=== PATIENT | female | born 1975 | race African-American/Black ===

== ENCOUNTER 2019-08-21 15:27 | Emergency (ER) | payer OTHER, SELFPAY ==
[2019-08-21 15:59] VITALS: BP 132/70; PULSE 96; RESP 16; TEMP 36.9; O2SAT 99
--- NOTE | 2019-08-21 16:39 | ED.URI ---
HPI - URI/Sore Throat General Chief Complaint: Upper Respiratory Infection Stated Complaint: Cough/Chest congestion/Runny/Stuffy Nose/Sinus Time Seen by Provider: 08/21/19 16:20 Source: patient and RN notes reviewed Mode of arrival: ambulatory Limitations: no limitations History of Present Illness HPI Narrative: Patient presents today with a one-week history of nasal congestion, sinus pressure, sore throat, productive cough, intermittent mild shortness of breath. Denies history of asthma. Reports she used her 's albuterol inhaler last night, which did provide some relief. She does not smoke or vape. She has tried no other [id number] medication for symptoms prior to arrival. MD elicited complaint: cough, sore throat and nasal congestion Related Data Home Medications Medication Instructions Recorded Confirmed fluticasone propionate INTRANASAL 08/21/19 Allergies Allergy/AdvReac Type Severity Reaction Status Date / Time No Known Allergies Allergy Verified 08/21/19 16:17 Review of Systems Review of Systems: Narrative: CONSTITUTIONAL: Denies body aches, fever, chills, or sweats. EYES: Denies visual changes, redness, or discharge. ENT: Denies rhinorrhea, or otalgia.+ Congestion, sore throat, sinus pressure CARDIOVASCULAR: Denies chest pain, palpitations, or edema. RESPIRATORY: + Cough, shortness of breath GASTROINTESTINAL: Denies abdominal pain, nausea, vomiting, or diarrhea. GENITOURINARY: Denies dysuria or hematuria. SKIN: Denies rash, itching, or wounds. MUSCULOSKELETAL: Denies back pain, joint pain, or myalgia. NEUROLOGIC: Denies headache, numbness, tingling, or weakness. PSYCH: Denies depression or anxiety. PMFSH Comments At time of signature, I have reviewed and agree with nursing past medical, surgical, social and family history unless otherwise noted. Please see nursing chart for further information. There is no relevant family history pertinent to the presenting complaint Exam Narrative: Exam Narrative: GENERAL: Mildly ill-appearing, well-nourished, and in no acute distress. HEAD: Normocephalic, atraumatic. EYES: EOMI. No redness or drainage. Conjunctivae normal. ENT: Mucous membranes pink and moist. Nares congested. No rhinorrhea. TMs normal bilaterally. Throat normal. Uvula midline. NECK: Normal AROM. Supple. No lymphadenopathy. CHEST: No respiratory distress. Clear to auscultation. HEART: Regular rate and rhythm. No murmur appreciated. Normal peripheral pulses. EXTREMITIES: Normal range of motion. No edema. SKIN: Warm, dry, no rash. NEURO: No focal deficits. Alert and oriented x3. Gait steady. PSYCH: Normal affect. No signs of depression or anxiety. Course Vital Signs Vital signs: Vital Signs Temperature 98.4 F 08/21/19 15:59 Pulse Rate 96 08/21/19 15:59 Respiratory Rate 16 08/21/19 15:59 Blood Pressure 132/70 08/21/19 15:59 Pulse Oximetry 99 08/21/19 15:59 Temperature 98.4 F 08/21/19 15:59 Pulse Rate 96 08/21/19 15:59 Respiratory Rate 16 08/21/19 15:59 Blood Pressure 132/70 08/21/19 15:59 Pulse Oximetry 99 08/21/19 15:59 Reviewed. Pt has been instructed to follow up with her PCP regarding her elevated blood pressure today. MDM - URI/Sore Throat Differential Diagnosis Differential diagnosis: Likely upper respiratory infection, otitis media, sinusitis, viral infection, bronchitis, influenza, pharyngitis and other (Strep throat) Lab Data Attestation: I reviewed the patient's lab results. Labs: Influenza A Screen Positive Reference Range: Negative Influenza B Screen Positive Reference Range: Negative Strep Screen Presumptive Negative *(Reference Range: Negative)* Critical Care Time Critical Care Time Critical Care Time: No Discharge Plan Discharge Clinical Impression: Bronchitis Upper respiratory infection Qualifiers: URI type: unspecified URI Qualified Code
== END 2019-08-21 16:44 | disposition home or self-care (01) ==
PROVIDERS: Emergency Provider Nurse Practitioner; PCP Emergency Medicine
DX: J40 Bronchitis, not specified as acute or chronic (principal); J06.9 Acute upper respiratory infection, unspecified
CPT/HCPCS: 87081; 87804; 87880; 99203; G0463

== ENCOUNTER 2020-01-14 08:12 | Emergency (ER) | payer OTHER, SELFPAY ==
[2020-01-14 08:34] VITALS: BP 132/84; PULSE 93; RESP 16; TEMP 37; O2SAT 100
--- NOTE | 2020-01-14 08:39 | ED.BACK ---
HPI - Back Pain/Injury General Chief Complaint: Back Pain/Injury Stated Complaint: backside pain Time Seen by Provider: 01/14/20 08:40 Source: patient and RN notes reviewed Mode of arrival: ambulatory Limitations: no limitations History of Present Illness HPI Narrative: 44-year-old female presents with concern for bilateral flank pain, pain under her bra strap for 2 weeks please. She reports pain also has radiated to the right groin at times. Reports she called a tele-doc and was given a seven-day course of levofloxacin for possible urinary tract infection, which she finished. Reports 2 days into the antibiotic she saw her product safety engineer where she had a negative test, normal pelvic exam. Reports she was told she had blood in her urine at that time. Her doctor instructed her to finish her antibiotic. She reports symptoms mildly improved, however have returned. She reports 3-4 episodes of nausea over the past 2 weeks, no vomiting. She denies any fever. Reports her menstrual period is due in approximately 5 days. Reports she noticed a small amount of blood when she urinated this morning. She denies any injury, trauma. Reports the pain does not worsen or improve with position changes. Reports occasionally feeling difficulty emptying her bladder, has not had that symptom in the last 3 to 4 days. MD elicited complaint: back pain Related Data Allergies Allergy/AdvReac Type Severity Reaction Status Date / Time No Known Allergies Allergy Verified 08/21/19 16:17 Review of Systems Review of Systems: Narrative: CONSTITUTIONAL: Denies malaise, chills, sweats, or fever. CARDIOVASCULAR: Denies chest pain, palpitations, or edema. RESPIRATORY: Denies cough or dyspnea. GASTROINTESTINAL: Denies abdominal pain, vomiting, diarrhea, bloody, or mucous stools. GENITOURINARY: Denies dysuria, frequency, urgency. Reports occasionally feeling difficulty emptying her bladder, hematuria today. SKIN: Denies bruising MUSCULOSKELETAL: Reports bilateral upper back pain,, bilateral flank pain. Denies myalgia. All systems reviewed & are unremarkable except as noted in HPI and below PMFSH Comments At time of signature, agree with nursing past medical, surgical, social and family history. There is no relevant family history pertinent to the presenting complaint Exam Narrative: Exam Narrative: GENERAL: Well-appearing, well-nourished, and in no acute distress. HEAD: Normocephalic EYES: PERRLA and EOMI. NECK: Supple. No lymphadenopathy. CHEST: Clear to auscultation. No respiratory distress. HEART: Regular rate and rhythm. Distal pulses palpable and equal, cap refill <3 seconds ABDOMEN: Soft, nontender, nondistended, normal active bowel sounds, no palpable or pulsatile masses. No CVA tenderness MUSCULOSKELETAL: Normal range of motion and strength in all extremities; 5/5 strength with hip flexion and extension, dorsiflexion and extension, knee flexion and extension, plantar flexion and extension. Normal sensation in dermatomal distributions with sensitivity to light touch and pain. No midline back tenderness to palpation. No paraspinal tenderness. Transfers from lying to sitting to standing. SKIN: Warm, dry, no rash. No ecchymosis, erythema, open wounds to back. NEURO: No focal deficits. Alert and oriented x3. Reflexes intact. Normal gait. PSYCH: Normal mood and affect Course Course Emergency Course: Discussed with patient negative test, positive hematuria. Discussed with patient possibility of kidney stones, transferring to emergency department for further evaluation. Patient does not wish to go to the emergency department at this time, would like to see her primary care doctor. Discussed with patient reasons she should go to the emergency department between now and when she can see her primary care doctor. Patient is agreeable to this plan. Patient is nontoxic appearing, afebrile Patient is aware of, understands and agrees to treatment plan. A
== END 2020-01-14 09:32 | disposition home or self-care (01) ==
PROVIDERS: Emergency Provider Nurse Practitioner; PCP Emergency Medicine
DX: R10.9 Unspecified abdominal pain (principal)
CPT/HCPCS: 81003; 81025; 99213; G0463

== ENCOUNTER 2021-01-15 19:17 | Emergency (ER) | payer OTHER, SELFPAY ==
[2021-01-15 19:33] VITALS: BP 118/75; PULSE 86; RESP 16; TEMP 37; O2SAT 98
--- NOTE | 2021-01-15 19:59 | ED.GENADULT ---
HPI - General Adult General Chief complaint: Urogenital-Female Stated complaint: uti/tooth ache Time Seen by Provider: 01/15/21 19:49 Source: patient and RN notes reviewed Mode of arrival: ambulatory Limitations: no limitations History of Present Illness HPI narrative: Patient presents today complaining of left upper and lower dental pain x1 week. States she needs a root canal, but since changing to a different insurance she has been unable to find a dentist. She has been using Orajel and ibuprofen without much relief. Currently rates her pain 10/10. She is also complaining of a 2-day history of urinary frequency and cloudy urine with right flank pain that she currently rates 5/10. Denies fever, hematuria, dysuria MD complaint: Tooth pain, urinary symptoms Related Data Allergies Allergy/AdvReac Type Severity Reaction Status Date / Time No Known Allergies Allergy Verified 01/15/21 19:44 Review of Systems Review of Systems: Narrative: CONSTITUTIONAL: Denies body aches, fever, chills, or sweats. EYES: Denies visual changes, redness, or discharge. ENT: Denies rhinorrhea, congestion, sore throat, or otalgia.+ Tooth pain CARDIOVASCULAR: Denies chest pain, palpitations, or edema. RESPIRATORY: Denies cough or dyspnea. GASTROINTESTINAL: Denies abdominal pain, nausea, vomiting, or diarrhea. GENITOURINARY: Denies dysuria or hematuria.+ Frequency, cloudy urine, right flank pain SKIN: Denies rash, itching, or wounds. MUSCULOSKELETAL: Denies back pain, joint pain, or myalgia. NEUROLOGIC: Denies headache, numbness, tingling, or weakness. PSYCH: Denies depression or anxiety. [facility] Family History Family History (Updated 07/27/18 @ 15:19 by DOCTOR UNKNOWN) Other Diabetes mellitus Hypertension Social History Social History Smoking status: Former smoker Smoking end date: 07/06/12 Alcohol intake: current Gender identity (if verbalized by the patient): Female Exam Narrative: Exam Narrative: GENERAL: Well-appearing, well-nourished, and in no acute distress. HEAD: Normocephalic, atraumatic. EYES: EOMI. No redness or drainage. Conjunctivae normal. ENT: Mucous membranes pink and moist. Nares clear. No rhinorrhea. Throat normal. Uvula midline. Patient's upper and lower gumline appears to be erythematous. No swelling of the face. No obvious periapical abscesses visualized. Patient kept backing away when I attempted to percuss or palpate her teeth. She does have some dental decay and fillings noted. NECK: Normal AROM. Supple. No lymphadenopathy. CHEST: No respiratory distress. Clear to auscultation. HEART: Regular rate and rhythm. No murmur appreciated. Normal peripheral pulses. ABDOMEN: Soft, nontender, nondistended, normal active bowel sounds. -CVAT MUSCULOSKELETAL: No bony tenderness. EXTREMITIES: Normal range of motion. No edema. SKIN: Warm, dry, no rash. Capillary refill normal. Normal skin turgor. NEURO: No focal deficits. Alert and oriented x3. Gait steady. PSYCH: Normal affect. No signs of depression or anxiety. Course Vital Signs Vital signs: Vital Signs Temperature 98.6 F 01/15/21 19:33 Pulse Rate 86 01/15/21 19:33 Respiratory Rate 16 01/15/21 19:33 Blood Pressure 118/75 01/15/21 19:33 Pulse Oximetry 98 01/15/21 19:33 Temperature 98.6 F 01/15/21 19:33 Pulse Rate 86 01/15/21 19:33 Respiratory Rate 16 01/15/21 19:33 Blood Pressure 118/75 01/15/21 19:33 Pulse Oximetry 98 01/15/21 19:33 Reviewed Medical Decision Making Differential Diagnosis Differential Diagnosis: Dental abscess, dental fracture, UTI, pyelonephritis Vital Signs Vital Signs: Vital Signs Temperature 98.6 F 01/15/21 19:33 Pulse Rate 86 01/15/21 19:33 Respiratory Rate 16 01/15/21 19:33 Blood Pressure 118/75 01/15/21 19:33 Pulse Oximetry 98 01/15/21 19:33 Temperature 98.6 F 01/15/21 19:33 Pulse Rate 86 01/15/21 19:33 Respiratory Rate 16 01/15/21 19:33 Blood
== END 2021-01-15 20:08 | disposition home or self-care (01) ==
PROVIDERS: Emergency Provider Nurse Practitioner
DX: N39.0 Urinary tract infection, site not specified (principal); K08.89 Other specified disorders of teeth and supporting structures; F17.200 Nicotine dependence, unspecified, uncomplicated
CPT/HCPCS: 81003; 87077; 87086; 87088; 87186; 99203; G0463

== ENCOUNTER 2021-07-28 08:28 | Emergency (ER) | payer OTHER, SELFPAY ==
[2021-07-28 08:38] VITALS: BP 149/93; PULSE 86; RESP 19; TEMP 37.1; O2SAT 100
--- NOTE | 2021-07-28 08:55 | ED.URI ---
HPI - URI/Sore Throat General Chief Complaint: Upper Respiratory Infection Stated Complaint: Sinus,Cough Time Seen by Provider: 07/28/21 08:55 Source: patient, family, RN notes reviewed and old records reviewed Mode of arrival: ambulatory Limitations: no limitations History of Present Illness HPI Narrative: 46-year-old female presents to the [facility] with complaints of cough and nasal congestion for the last 4 days. States it is worse when she wakes up in the morning. Has tried Mucinex with little relief. Denies fevers. Denies chest pain or abdominal pain. No nausea vomiting or diarrhea. MD elicited complaint: cough and nasal congestion Related Data Home Medications Medication Instructions Recorded Confirmed acyclovir 400 mg PO DAILY 07/28/21 07/28/21 Allergies Allergy/AdvReac Type Severity Reaction Status Date / Time No Known Allergies Allergy Verified 07/28/21 08:36 Review of Systems Review of Systems: All systems reviewed & are unremarkable except as noted in HPI and below Constitutional: Constitutional: Reports no additional constitutional complaints, Denies chills, Denies fever(s) and Denies headache(s) Eyes: Eyes: Reports no additional eye complaints ENT: Reports as per HPI, Denies vertigo, Denies dizziness, Denies headache(s), Reports nasal congestion and Denies sore throat Cardiovascular: Cardiovascular: Reports no additional cardiovascular complaints, Denies chest pain, Denies syncope, Denies rapid heart rate and Denies dyspnea Respiratory: Respiratory: Reports as per HPI, Denies chest congestion, Reports cough, Denies dyspnea and Denies wheezing Gastrointestinal: Gastrointestinal: Reports no additional gastrointestinal complaints, Denies abdominal pain, Denies diarrhea, Denies nausea and Denies vomiting Musculoskeletal: Musculoskeletal: Reports no additional musculoskeletal complaints and Denies numbness Integumentary/Breasts: Skin/Breast: Reports system reviewed and no additional complaints, except as docu Neurologic: Reports system reviewed and no additional complaints, except as documented, Denies vertigo, Denies dizziness, Denies syncope, Denies headache(s), Denies focal weakness and Denies numbness Psychiatric: Psychiatric: Reports no additional psychiatric complaints Allergic/Immunologic: Allergic/Immunologic: Reports no additional allergic/immunologic complaints and Denies wheezing PMFSH Family History Family History Other Diabetes mellitus Hypertension Social History Social History Smoking status: Former smoker Smoking end date: 07/06/12 Alcohol intake: current Gender identity (if verbalized by the patient): Female Comments At the time of my signature, I reviewed and agree with the nursing past medical, surgical, social, and family history. There is no relevant family history pertinent to the patient complaint. Exam Const: General: cooperative, healthy appearing, no acute distress, well developed and alert Nutritional Appearance: well nourished and obese Orientation/consciousness: patient oriented x3 Limitations: no limitations HENMT: Head: normal to inspection Ears: external ears normal, EAC's normal and TM abnormal with fluid behind the TM bilateral; with no loss of landmarks General nose exam: Normal nasal mucous membranes and turbinates present and No nasal discharge present Mouth: Yes lip normal and Yes moist mucous membranes Throat: uvula midline, postnasal drainage and no uvular edema Eyes: Conjunctivae: conjunctivae normal Pupils: Equal, round and reactive pupils present Direct Ophthalmoscopy: no photophobia Neck: Neck: normal visual inspection, no lymphadenopathy and no meningeal signs Chest: Chest palpation & inspection: normal inspection of the chest Resp: Effort & Inspection: normal respiratory effort and no use of accessory muscles Auscultation: clear to
== END 2021-07-28 09:12 | disposition home or self-care (01) ==
PROVIDERS: Emergency Provider Nurse Practitioner
DX: J06.9 Acute upper respiratory infection, unspecified (principal); R09.82 Postnasal drip; Z87.891 Personal history of nicotine dependence; K21.9 Gastro-esophageal reflux disease without esophagitis
CPT/HCPCS: 99213; G0463

== ENCOUNTER 2023-06-30 17:23 | Emergency (ER) | payer OTHER, SELFPAY ==
--- NOTE | ~2023-06-30 | XR_ITS ---
EXAMINATION: XR chest 2V Exam Date/Time: 06/30/2023 18:25 RN ADMISSIONS HISTORY: cough x 1 1/2 weeks non productive Comparison: None. RESULT: Lines, tubes, and devices: None. Lungs and pleura: Clear. Cardiomediastinal silhouette: Stable. Other: No acute osseous or upper abdominal finding. Thoracic scoliosis. IMPRESSION: No acute cardiopulmonary process. Reviewed, dictated and finalized at location K. ADMISSIONS
[2023-06-30 17:35] VITALS: BP 133/72; PULSE 88; RESP 16; TEMP 36.9; O2SAT 100
[2023-06-30 17:40] VITALS: BP 133/72; PULSE 88; RESP 16; TEMP 36.9; O2SAT 100
--- NOTE | 2023-06-30 18:04 | ED.URI ---
HPI - URI/Sore Throat General Chief Complaint: Upper Respiratory Infection Stated Complaint: cough,chest rattle Time Seen by Provider: 06/30/23 18:04 Source: patient Mode of arrival: ambulatory Limitations: no limitations History of Present Illness HPI Narrative: 48-year-old female presents with complaint of cough for 10 days. Reports over the past several days has had shortness of breath with exertion, congestion, rattling and chest. Afebrile. Taking [id number] Mucinex with no relief of symptoms. Missed work today and needs note. Patient requesting chest x-ray. All systems reviewed and negative except as noted above. Related Data Home Medications Medication Instructions Recorded Confirmed fluticasone propionate 50 intranasal 06/30/23 06/30/23 mcg/actuation nasal spray,suspension loratadine 10 mg tablet mg 06/30/23 omeprazole 20 mg capsule,delayed mg 06/30/23 06/30/23 release Allergies Allergy/AdvReac Type Severity Reaction Status Date / Time No Known Allergies Allergy Verified 06/30/23 17:39 Review of Systems Review of Systems: CONSTITUTIONAL: Denies fever, chills, or sweats. EYES: Denies visual changes, redness, or discharge. ENT: Denies rhinorrhea, congestion, sore throat, or otalgia. CARDIOVASCULAR: Denies chest pain, palpitations, or edema. RESPIRATORY: Reports cough, chest congestion, dyspnea with exertion. GASTROINTESTINAL: Denies abdominal pain, nausea, vomiting, or diarrhea. GENITOURINARY: Denies dysuria or hematuria. SKIN: Denies rash or itching. MUSCULOSKELETAL: Denies back pain, joint pain, or myalgia. NEUROLOGIC: Denies headache, numbness, or weakness. PSYCHIATRIC: Denies anxiety or depression. All other systems reviewed are negative, except as documented in HPI. [facility] Past Medical History Medical History (Updated 06/30/23 @ 19:15 by Linnea Hilario NP) Flank pain Family History Family History (System 09/24/21 @ 12:11 by Janna Peters) Other Diabetes mellitus Hypertension Social History Social History (System 09/24/21 @ 12:11 by Janna Peters) Smoking status: Former smoker Smoking end date: 07/06/12 Alcohol intake: current Gender identity (if verbalized by the patient): Female Comments At time of signature, agree with nursing past medical, surgical, social and family history. There is no relevant family history pertinent to the presenting complaint. Exam Narrative: GENERAL: This is a well-nourished, well-developed patient, in no apparent distress. HEAD: normocephalic, atraumatic. EYES: PERRL. Sclera clear/white. Vision is grossly intact. EARS: External ears normal, auditory canals clear and without drainage, TMs normal without perforation. Hearing grossly intact. NOSE: External nose normal with no obvious nasal discharge, nares without redness, no rhinorrhea. THROAT: Mucous membranes moist, posterior pharynx clear. NECK: Neck supple, non-tender without lymphadenopathy, masses or thyromegaly. CARDIOVASCULAR: Regular rate and rhythm without murmurs, gallops, or rubs. RESPIRATORY: Clear to auscultation. Breath sounds equal bilaterally. No wheezes, rales, or rhonchi. SKIN: warm, Dry, intact with no suspicious lesions or rash, good texture and turgor. NEURO: awake, alert, and oriented to person, place and time. There were no obvious focal neurologic abnormalities. EXTREMITIES: No joint tenderness, effusion, or edema noted. Course Course Level of Care: Express Care Visit Vital Signs Vital signs: Vital Signs Temperature 36.9 C 06/30/23 17:35 Pulse Rate 88 06/30/23 17:35 Respiratory Rate 16 06/30/23 17:35 Blood Pressure 133/72 06/30/23 17:35 Pulse Oximetry 100 06/30/23 17:35 Oxygen Delivery Room Air 06/30/23 17:35 Temperature 36.9 C 06/30/23 17:40 Pulse Rate 88 06/30/23 17:40 Respiratory Rate 16 06/30/23 17:40 Blood Pressure 133/72 06/30/23 17:40 Pulse Oximetry 100 06/30/23
== END 2023-06-30 19:20 | disposition home or self-care (01) ==
PROVIDERS: Emergency Provider Nurse Practitioner Family
DX: J20.9 Acute bronchitis, unspecified (principal)
CPT/HCPCS: 71046; 99213; G0463